=== PATIENT | male | born 1960 | race Caucasian/White ===

== ENCOUNTER 2023-03-27 19:09 | Emergency (ER) | payer BC ==
[~2023-03-27] VITALS: Ht 167.6 cm; Wt 98.9 kg
[~2023-03-27 19:09] MED LIST: BUPR100 PO; ERYT.5TO OP; ESCI10 PO; HYDACE5 PO; MORP10S PR; OXYC20ER PO; ZOLP10 PO
[2023-03-27 19:51] LABS: BASOPHILS ABSOLUTE AUTO 0.07 K/mm3 (0.00-0.23); BASOPHILS PERCENT AUTO 1 % (0-2); EOSINOPHILS ABSOLUTE AUTO 0.12 K/mm3 (0.00-0.68); EOSINOPHILS PERCENT AUTO 1 % (0-6); Hematocrit 46.2 % (37.0-53.0); Hemoglobin 16.2 g/dL (13.5-17.5); IMMATURE GRAN ABSOLUTE AUTO 0.04 K/mm3 (0.00-0.10); IMMATURE GRAN PERCENT AUTO 0 % (0-1); LYMPHOCYTES ABSOLUTE AUTO 2.25 K/mm3 (0.84-5.20); LYMPHOCYTES PERCENT AUTO 21 % (21-46); MONOCYTES ABSOLUTE AUTO 0.75 K/mm3 (0.16-1.47); MONOCYTES PERCENT AUTO 7 % (4-13); Mean Corpuscular HGB 29.2 pg (26.0-34.0); Mean Corpuscular HGB Conc 35.1 g/dL (31.5-36.5); Mean Corpuscular Volume 83 fL (80-100); Mean Platelet Volume 11.6 fL (9.1-12.4); NEUTROPHILS PERCENT AUTO 70 % (41-73); Platelet Count 317 K/mm3 (150-400); RDW Coefficient Variation 11.9 % (11.7-14.2); RDW Standard Deviation 36.1 fL (35.1-46.3); Red Blood Cell Count 5.55 M/mm3 (4.30-5.90); White Blood Cell Count 10.83 K/mm3 (4.00-11.30)
[2023-03-27 20:16] LABS: Base Excess Venous -0.3 mmol/L; Bicarbonate Venous 23.4 mmol/L (24.0-30.0); PCO2 Venous 42.7 mmHg (38-42); pH Blood Venous 7.37 (7.34-7.37)
[2023-03-27 20:33] LABS: Albumin, Blood 4.1 g/dL (3.4-5.0); Albumin/Globulin Ratio 0.8 (0.8-1.8); Bilirubin, Total 0.5 mg/dL (0.1-1.0); Calcium, Blood 9.8 mg/dL (8.5-10.1); Creatinine, Blood 1.07 mg/dL (0.60-1.20); Globulin, Blood 5.1 g/dL (2.2-4.0); Potassium, Blood 4.5 mmol/L (3.5-5.5); Total Protein, Blood 9.2 g/dL (6.4-8.2)
[2023-03-27 20:42] LABS: Source, Urine Clean Catch
[2023-03-27 20:54] LABS: Bilirubin, Urine Neg (Neg); Blood, Urine Neg (Neg); Glucose Qualitative, Urine 4+ (Neg); Ketones, Urine 2+ (Neg); Leukocyte Esterase, Urine Neg (Neg); Nitrite, Urine Neg (Neg); Protein, Urine Neg (Neg); Urobilinogen, Urine NORM (Normal)
[2023-03-27 21:07] LABS: Appearance, Urine Clear (Clear); Color, Urine Yellow (P-Yellow)
[2023-03-27 21:09] LABS: Glucose, Blood 679 mg/dL (70-99)
[2023-03-27 22:09] LABS: Glucose, Blood 460 mg/dL (70-99)
[2023-03-27 23:55] VITALS: BP 142/74
[2023-03-30] MEDS ORDERED: BASAGLAR K100 UNIT/3 SC (17:57)
== END 2023-03-27 23:58 | disposition home or self-care (01) ==
LOC: ER 19:09
PROVIDERS: Emergency Medicine
DX: E11.9 Type 2 diabetes mellitus without complications (principal); Z87.891 Personal history of nicotine dependence; R73.09 Other abnormal glucose; R73.9 Hyperglycemia, unspecified; R81 Glycosuria
CPT/HCPCS: 36415; 80053; 81003; 82010; 82803; 82947; 83036; 84443; 85025; 93005; 93010; 96360; 96361; 99283-25; J1815; J7030

== ENCOUNTER 2023-03-30 13:20 | Inpatient (IN) | payer MEDICARE, BC ==
[2023-03-30] VITALS (7 sets, daily range): BP systolic 136–174; BP diastolic 84–146
[~2023-03-30] VITALS: Ht 170.2 cm; Wt 97.9 kg
[2023-03-30] MEDS ORDERED: BASAGLAR K100 UNIT/1 (13:37)
[2023-03-30] MEDS ORDERED: METF500 PO (13:37)
[2023-03-30 13:49] LABS: BASOPHILS ABSOLUTE AUTO 0.06 K/mm3 (0.00-0.23); BASOPHILS PERCENT AUTO 1 % (0-2); EOSINOPHILS ABSOLUTE AUTO 0.04 K/mm3 (0.00-0.68); EOSINOPHILS PERCENT AUTO 0 % (0-6); Hematocrit 46.5 % (37.0-53.0); Hemoglobin 15.9 g/dL (13.5-17.5); IMMATURE GRAN ABSOLUTE AUTO 0.03 K/mm3 (0.00-0.10); IMMATURE GRAN PERCENT AUTO 0 % (0-1); LYMPHOCYTES ABSOLUTE AUTO 1.34 K/mm3 (0.84-5.20); LYMPHOCYTES PERCENT AUTO 15 % (21-46); MONOCYTES ABSOLUTE AUTO 0.42 K/mm3 (0.16-1.47); MONOCYTES PERCENT AUTO 5 % (4-13); Mean Corpuscular HGB 29.3 pg (26.0-34.0); Mean Corpuscular HGB Conc 34.2 g/dL (31.5-36.5); Mean Corpuscular Volume 86 fL (80-100); Mean Platelet Volume 11.9 fL (9.1-12.4); NEUTROPHILS ABSOLUTE AUTO 7.16 K/mm3 (1.96-9.15); NEUTROPHILS PERCENT AUTO 79 % (41-73); Platelet Count 277 K/mm3 (150-400); RDW Coefficient Variation 11.9 % (11.7-14.2); RDW Standard Deviation 37.2 fL (35.1-46.3); Red Blood Cell Count 5.43 M/mm3 (4.30-5.90); White Blood Cell Count 9.05 K/mm3 (4.00-11.30)
[2023-03-30 13:50] LABS: Base Excess Venous -0.6 mmol/L; Bicarbonate Venous 22.5 mmol/L (24.0-30.0); PCO2 Venous 51.9 mmHg (38-42); pH Blood Venous 7.31 (7.34-7.37)
[2023-03-30 14:36] LABS: Albumin, Blood 3.9 g/dL (3.4-5.0); Albumin/Globulin Ratio 0.9 (0.8-1.8); Bilirubin, Total 0.7 mg/dL (0.1-1.0); Bun/Creatinine Ratio 32.7 (12.0-20.0); Calcium, Blood 9.8 mg/dL (8.5-10.1); Creatinine, Blood 0.92 mg/dL (0.60-1.20); Globulin, Blood 4.4 g/dL (2.2-4.0); Potassium, Blood 4.7 mmol/L (3.5-5.5); Total Protein, Blood 8.3 g/dL (6.4-8.2)
[2023-03-30 14:53] LABS: Source, Urine Clean Catch
[2023-03-30 15:04] LABS: Bilirubin, Urine Neg (Neg); Blood, Urine Neg (Neg); Glucose Qualitative, Urine 4+ (Neg); Ketones, Urine 2+ (Neg); Leukocyte Esterase, Urine Neg (Neg); Nitrite, Urine Neg (Neg); Protein, Urine Neg (Neg); Urobilinogen, Urine NORM (Normal)
[2023-03-30 15:05] LABS: Appearance, Urine Clear (Clear); Color, Urine Pale Yellow (P-Yellow)
[2023-03-30 15:22] LABS: Magnesium, Blood 2.3 mg/dL (1.6-2.4); Phosphorus, Blood 5.2 mg/dL (2.5-4.9)
[2023-03-30 16:28] LABS: U Amphetamine Screen Not Detected; U Barbituate Screen Not Detected; U Benzodiazapine Screen Not Detected; U Buprenorphine Screen Not Detected; U Cannabinoids Screen Not Detected; U Cocaine Screen Not Detected; U Methadone Screen Not Detected; U Methamphetamine Screen Not Detected; U Opiates Screen Not Detected; U Oxycodone Screen Not Detected; U Phencyclidine Screen Not Detected; U Propoxyphene Screen Not Detected
[2023-03-30 16:33] LABS: Glucose, Blood 641 mg/dL (70-99)
[2023-03-30] MEDS ORDERED: INSULIN GL100 UNIT/2 SC (17:57)
[2023-03-30 18:32] LABS: Albumin, Blood 3.7 g/dL (3.4-5.0); Anion Gap 10 mmol/L (6-16); Blood Urea Nitrogen 27 mg/dL (8-24); Bun/Creatinine Ratio 32.3 (12.0-20.0); CO2, Blood 22 mmol/L (21-32); Calcium, Blood 9.9 mg/dL (8.5-10.1); Chloride, Blood 101 mmol/L (98-108); Creatinine, Blood 0.84 mg/dL (0.60-1.20); Glomerular Filtration Rate 98 (60-); Glucose, Blood 458 mg/dL (70-99); Potassium, Blood 3.8 mmol/L (3.5-5.5); Sodium, Blood 133 mmol/L (136-145)
--- NOTE | 2023-03-30 18:54 | NUR ---
PADMINI WAS ADMITTED FROM ED TO ICU BED 8, HE IS ALERT AND ORIENTED, HE IS ANSWERING QUESTIONS APPROPRIATELY AND HELPING WITH HIS ADMIT. HIS INSULIN GTT WAS INITIALLY AT 9.9U/HR WHEN ARRIVED FROM ED. IT WAS PLACED AT 5U/HR. WHEN CBG WAS TAKEN ABOUT 1 HOUR FROM ADMISSION, HIS SUGAR WAS DOWN TO 384. IV FLUIDS CONTINUE AT 250ML/HR OF 1/2NS. HE IS EDUCATED TO THE S/SX OF WHAT TO LOOK FOR AND WHAT HE IS FEELING. PT IS ORIENTED TO CALL LIGHT AND USES URINAL APPROPRIATELY. REPORT IS GIVEN TO CHRIS DUDLEY.
[2023-03-30 20:51] LABS: Albumin, Blood 3.6 g/dL (3.4-5.0); Anion Gap 8 mmol/L (6-16); Blood Urea Nitrogen 25 mg/dL (8-24); CO2, Blood 24 mmol/L (21-32); Calcium, Blood 9.2 mg/dL (8.5-10.1); Chloride, Blood 104 mmol/L (98-108); Creatinine, Blood 0.81 mg/dL (0.60-1.20); Glomerular Filtration Rate 99 (60-); Glucose, Blood 349 mg/dL (70-99); Phosphorus, Blood 3.5 mg/dL (2.5-4.9); Potassium, Blood 3.8 mmol/L (3.5-5.5); Sodium, Blood 136 mmol/L (136-145)
[2023-03-31] VITALS (12 sets, daily range): BP systolic 78–160; BP diastolic 51–101
[2023-03-31 03:53] LABS: BASOPHILS ABSOLUTE AUTO 0.05 K/mm3 (0.00-0.23); BASOPHILS PERCENT AUTO 1 % (0-2); EOSINOPHILS ABSOLUTE AUTO 0.23 K/mm3 (0.00-0.68); EOSINOPHILS PERCENT AUTO 3 % (0-6); Hematocrit 40.8 % (37.0-53.0); Hemoglobin 14.1 g/dL (13.5-17.5); IMMATURE GRAN ABSOLUTE AUTO 0.02 K/mm3 (0.00-0.10); IMMATURE GRAN PERCENT AUTO 0 % (0-1); LYMPHOCYTES ABSOLUTE AUTO 3.12 K/mm3 (0.84-5.20); LYMPHOCYTES PERCENT AUTO 34 % (21-46); MONOCYTES ABSOLUTE AUTO 0.64 K/mm3 (0.16-1.47); MONOCYTES PERCENT AUTO 7 % (4-13); Mean Corpuscular HGB 29.2 pg (26.0-34.0); Mean Corpuscular HGB Conc 34.6 g/dL (31.5-36.5); Mean Corpuscular Volume 85 fL (80-100); Mean Platelet Volume 11.7 fL (9.1-12.4); NEUTROPHILS ABSOLUTE AUTO 5.03 K/mm3 (1.96-9.15); NEUTROPHILS PERCENT AUTO 55 % (41-73); Platelet Count 251 K/mm3 (150-400); RDW Standard Deviation 36.5 fL (35.1-46.3); Red Blood Cell Count 4.83 M/mm3 (4.30-5.90); White Blood Cell Count 9.09 K/mm3 (4.00-11.30)
[2023-03-31 04:26] LABS: Bun/Creatinine Ratio 28.8 (12.0-20.0); Calcium, Blood 8.8 mg/dL (8.5-10.1); Creatinine, Blood 0.94 mg/dL (0.60-1.20); Potassium, Blood 3.8 mmol/L (3.5-5.5)
--- NOTE | 2023-03-31 06:15 | NUR ---
PATIENT AOX4. SR WITH STABLE BP. ROOM AIR. INSULIN GTT TURNED OFF AT 0000 AND PATIENT TOLERATING DIET. VOIDING IN URINAL. STATUS CHANGED TO MED W/ TELE.
--- NOTE | 2023-03-31 11:01 | NUR ---
CARE OF PT ASSUMED AT 0700. PT AWAKE AND OX3, DENIES C/O PAIN/NAUSEA. INITIAL BS 390; DR TORO CALLED, AM DOSE OF LANTUS GIVEN, SS CHANGED TO HIGH FROM LOW. PT SBA TO CAHIR FOR BREAKFAST. DR TORO IN TO SEE PT AROUND 0900. PT MEDICAL STATUS. BEDBATH OFFERED, PT DECLINED.
--- NOTE | 2023-03-31 11:25 | NUR ---
BS [address] TORO CALLED. 5UNITS ADDED TO SS AC AND HS. REPORT GIVEN TO MED FLOOR RN. PT TRANSFERED UP VIA WHEELCHAIR IN STABLE CONDITION.
--- NOTE | 2023-03-31 11:41 | NUR ---
ASSUMED CARE OF PATIENT UPON HIS TRANSFER FROM ICU; ARRIVED VIA AT 1137. A&O X 4, PLEASANT. NO SUPPLEMENTAL OXYGEN IN USE. ABLE TO TRANSFER FROM TO BED INDEPENDENLTY. DENIES PAIN. APPEARANCE IS DISHELVELED, APPARENTLY DECLINED OFFERED BATH IN ICU. ORIENTED TO ROOM/UNIT, TELEMEMTRY MONITOR, CALL LIGHT, AND EDUCATED ABOUT OXYGEN SAFETY AND IGNITION SOURCES, WHICH HE DENIED HAVING. CALL LIGHT AND BELONGINGS IN REACH.
--- NOTE | 2023-03-31 16:31 | NUR ---
CBG WAS 421; DR. TORO NOTIFIED. AWAITING UPDATED ORDERS.
--- NOTE | 2023-03-31 17:56 | NUR ---
SHIFT SUMMARY: NO ACUTE EVENTS SINCE TRANSFER FROM ICU. DENIED PAIN. HAD BM, C/O TO SUPERVISOR PUBLICATIONS THAT PASSING STOOL WAS PAINFUL, SO MIRALAX ORDERED BY DR. TORO. C/O BEING FATIGUED. EDUCATED PT ON S/S OF HYPOGLYCEMIA TO WATCH FOR SINCE METFORMIN STARTED THIS EVENING. NO EVENTS ON TELEMETRY, SR 80-90'S. CBG BEFORE DINNER 421; DR. TORO NOTIFIED BY PHONE AND UPDATED INSULIN ORDERS RECEIVED. WOULD BENEFIT GREATLY FROM CONSULT WITH INDUSTRIAL SERVICE TECHNICIAN. SOFTWARE ENGINEER BACKEND CONSULT PLACED.
[2023-04-01 02:01] VITALS: BP 122/60
--- NOTE | 2023-04-01 04:34 | NUR ---
NOC SHIFT SUMMARY: PT HERE FOR HIGH BLOOD SUGARS. BED TIME SUGAR 451. MD NOTIFIED AND INSULIN GIVEN ORDERED. NO C/O PAIN. LEFT AC IV INTACT. RIGHT THUMB IV REMOVED. CALLS APPROPRIATELY.
[2023-04-01 05:46] LABS: BASOPHILS ABSOLUTE AUTO 0.04 K/mm3 (0.00-0.23); BASOPHILS PERCENT AUTO 1 % (0-2); EOSINOPHILS ABSOLUTE AUTO 0.21 K/mm3 (0.00-0.68); EOSINOPHILS PERCENT AUTO 3 % (0-6); Hematocrit 36.6 % (37.0-53.0); Hemoglobin 12.8 g/dL (13.5-17.5); IMMATURE GRAN ABSOLUTE AUTO 0.03 K/mm3 (0.00-0.10); IMMATURE GRAN PERCENT AUTO 0 % (0-1); LYMPHOCYTES ABSOLUTE AUTO 2.57 K/mm3 (0.84-5.20); LYMPHOCYTES PERCENT AUTO 34 % (21-46); MONOCYTES ABSOLUTE AUTO 0.52 K/mm3 (0.16-1.47); MONOCYTES PERCENT AUTO 7 % (4-13); Mean Corpuscular HGB 29.6 pg (26.0-34.0); Mean Corpuscular Volume 85 fL (80-100); Mean Platelet Volume 11.9 fL (9.1-12.4); NEUTROPHILS ABSOLUTE AUTO 4.17 K/mm3 (1.96-9.15); NEUTROPHILS PERCENT AUTO 55 % (41-73); Platelet Count 192 K/mm3 (150-400); RDW Coefficient Variation 11.9 % (11.7-14.2); RDW Standard Deviation 36.7 fL (35.1-46.3); Red Blood Cell Count 4.32 M/mm3 (4.30-5.90); White Blood Cell Count 7.54 K/mm3 (4.00-11.30)
[2023-04-01 06:43] LABS: Anion Gap 8 mmol/L (6-16); Blood Urea Nitrogen 38 mg/dL (8-24); Bun/Creatinine Ratio 33.9 (12.0-20.0); CO2, Blood 26 mmol/L (21-32); Calcium, Blood 8.2 mg/dL (8.5-10.1); Chloride, Blood 101 mmol/L (98-108); Creatinine, Blood 1.12 mg/dL (0.60-1.20); Glomerular Filtration Rate 74 (60-); Glucose, Blood 364 mg/dL (70-99); Phosphorus, Blood 3.3 mg/dL (2.5-4.9); Potassium, Blood 3.6 mmol/L (3.5-5.5); Sodium, Blood 135 mmol/L (136-145)
[2023-04-01 07:33] VITALS: BP 130/72
[2023-04-01 16:13] VITALS: BP 150/83
--- NOTE | 2023-04-01 18:06 | NUR ---
SHIFT SUMMARY: NO ACUTE EVENTS. CBG AT LUNCH WAS 408 AND HE WAS MEDICATED PER ORDERS. AT DINNER, CBG WAS 226; THIS AUTHOR HELD EXTRA 10 UNITS OF HUMALOG, ONLY GAVE SLIDING SCALE (6 UNITS) AND METFORMIN. NO EVENTS ON TELEMETRY, SR 70-90'S. WAS ABLE TO TAKE SHOWER INDEPENDENTLY. OVERNIGHT OXIMETRY ORDERED FOR TONIGHT, BUT PER RT THERE MAY NOT BE AVAILABLE RT TONIGHT TO DO THIS TEST. OF NOTE, PATIENT MAY NEED BETTER GLUCOMETER AND DEFINITELY NEEDS RX FOR LANCETS.
[2023-04-01 19:29] VITALS: BP 152/85
--- NOTE | 2023-04-02 04:22 | NUR ---
SHIFT SUMMARY PATIENT A/Ox4, PLEASANT/COOPERATIVE. C/O DELEON AT HS, MEDICATED PER JUL, TOLERATED WELL, RELIEF STATED. CONTINUES ON TELE, SR IN 80s WITH PACs/PVCs. INDEPENDANT IN ROOM. NO ACUTE CHANES NOTED OVERNIGHT. BED LOCKED AND IN LOWEST POSITION, CALL LIGHT WITHIN REACH.
[2023-04-02 05:43] VITALS: BP 145/87
[2023-04-02 06:41] LABS: Anion Gap 5 mmol/L (6-16); Blood Urea Nitrogen 25 mg/dL (8-24); Bun/Creatinine Ratio 26.8 (12.0-20.0); CO2, Blood 28 mmol/L (21-32); Calcium, Blood 8.6 mg/dL (8.5-10.1); Chloride, Blood 107 mmol/L (98-108); Creatinine, Blood 0.93 mg/dL (0.60-1.20); Glomerular Filtration Rate 92 (60-); Glucose, Blood 244 mg/dL (70-99); Phosphorus, Blood 3.2 mg/dL (2.5-4.9); Potassium, Blood 3.8 mmol/L (3.5-5.5); Sodium, Blood 140 mmol/L (136-145)
[2023-04-02 07:58] VITALS: BP 138/87
[2023-04-02 15:44] VITALS: BP 138/96
--- NOTE | 2023-04-02 18:28 | NUR ---
SHIFT SUMMARY- PT ADMITTED FOR HYPERGLYCEMIA, BG WAS NEARLY 300 ALL SHIFT THIS EVENING IT WAS 197. PT BEGAN C/O PAIN IN THE ABDOMEN THAT GOES DOWN INTO THE BACK OF HIS LEGS. HE DESCRIBES IT SITTING ON A TREE BRANCH HIGH OFF THE GROUND. HE RATES THE PAIN AT 7/10. MEDICATED WITH OXY WITH NO IMPROVEMENT NOTED, PROVIDED WITH A WARM BLANKET TO THE AFFECTED AREA, A HEATING PAD TO THE LOW BACK, A RECLINER WELL THE PAIN MEDS. PT IS CURRENTLY UP SITTING AT THE EOB EATING DINNER, NO CURRENT S&S OF DISTRESS. CALL LIGHT IN REACH, INDEPENDENT IN THE ROOM.
[2023-04-02 19:50] VITALS: BP 163/86
--- NOTE | 2023-04-03 04:09 | NUR ---
SHIFT SUMMARY PATIENT A/Ox4, PLEASANT/INTERACTIVE. C/O LUMBAR PAIN DOWN BUTTOCKS TO THIGHS, STATES HE HAS HAD ISSUES WITH SCIATIC NERVE PAIN, MEDICATED PER MAR, TOLERATED WELL. INDEPENDANT IN ROOM. NO ACUTE CHANES NOTED OVERNIGHT. BED LOCKED AND IN LOWEST POSITION, CALL LIGHT WITHIN REACH.
[2023-04-03 04:43] VITALS: BP 125/77
[2023-04-03 07:39] VITALS: BP 134/78
[2023-04-03 15:56] VITALS: BP 140/77
--- NOTE | 2023-04-03 17:29 | NUR ---
SHIFT SUMMARY NO ACUTE CHANGES THIS SHIFT. PT DENIED PAIN T/O SHIFT. CALL LIGHT WITHIN REACH AND PT ABLE TO MAKE NEEDS KNOWN. PLAN FOR POSSIBLE DISCHARGE TOMORROW.
[2023-04-03 19:43] VITALS: BP 127/83
[2023-04-04 05:00] VITALS: BP 127/74
[2023-04-04 07:30] VITALS: BP 115/75
--- NOTE | 2023-04-04 07:34 | NUR ---
Shift Summary Pt painful and cramping t/o the night, c/o of posterior upper leg pain and lower back pain. Pt having calf muscle cramps. Blood glucse 115 last night. AOx4, indepenent in room.
[2023-04-04] MEDS ORDERED: MASOPHEN325 M4 PO (12:06)
[2023-04-04] MEDS ORDERED: HUMALOG KW100 UNIT/1 SC (12:09)
[2023-04-04] MEDS ORDERED: POTA10T PO (12:41)
--- NOTE | 2023-04-04 19:38 | NUR ---
DISCHARGE NOTE- PT WAS GIVEN VERBAL AND WRITTEN DISCHARGE INSTRUCTIONS AND ACKNOWLEDGED UNDERSTANING OF THEM. PT CALLED FOR A FRIEND TO PICK HIM PU IV AND TELE DC'D PRIOR TO DISCHARGE. PT DECLINED ESCORT AND WALKED OUT ON HIS OWN. NO S&S OF DISTRESS NOTED AT THE TIME OF DISCHARGE.
== END 2023-04-04 14:14 | disposition home or self-care (01) | DRG 637 ==
LOC: ER 13:20 → MEDS 17:05 → ICUE 17:05 → MEDS 03-31 11:33
PROVIDERS: Emergency Medicine; Nurse Practitioner Acute Care; ADMIT Family Medicine
DX: E11.00 Type 2 diabetes mellitus with hyperosmolarity without nonketotic hyperglycemic-hyperosmolar coma (NKHHC) (principal); G93.41 Metabolic encephalopathy; E87.1 Hypo-osmolality and hyponatremia; E66.9 Obesity, unspecified; I10 Essential (primary) hypertension; Z79.4 Long term (current) use of insulin; Z79.84 Long term (current) use of oral hypoglycemic drugs; Z87.891 Personal history of nicotine dependence; Z96.651 Presence of right artificial knee joint; E87.8 Other disorders of electrolyte and fluid balance, not elsewhere classified; Z68.35 Body mass index [BMI] 35.0-35.9, adult
CPT/HCPCS: 36415; 70450; 80048; 80053; 80069; 81003; 82803; 82947; 83735; 83930; 84100; 84132; 85025; 93005; 93010; 96360; 99285-25; A9270; C9113; J1650; J1815; J3480; J7030